=== PATIENT | male | born 1930 ===

== ENCOUNTER 2017-02-18 17:45 | Inpatient (IN) | payer OTHER, MEDICARE ==
[2017-02-18] MEDS ORDERED: METOPROLOL TARTRATE 5 MG/5 ML VIAL IV PUSH SCH (20:00)
[2017-02-18] MEDS ORDERED: METOPROLOL TARTRATE 5 MG/5 ML VIAL IV PUSH PRN (20:13)
[2017-02-18] MEDS ORDERED: PILL SPLITTER OTHER PRN (20:15)
--- NOTE | 2017-02-18 20:21 | HHI.HP ---
History of Present Illness Chief Complaint: juxtarenal AAA History of Present Illness 86 yo male with asymptomatic AAA. The patient said that he was told to come to ED by home health RN because of an AAA. The patient knew about it years ago but says that "it was too small". By outside report, he has no radiographic evidence of leak or signs of rupture. The patient notes no abdominal or back pain and reports that he is in his usual state of health. Of note, there is a noted clinical history of a CVA with mild dementia but he seems very pleasant and oriented. Past/Family/Social History Past Medical History HTN XOL a-fib (on coumadin) DM BPH with chronic Her drainage ?CVA ? dementia Past Surgical History none per patient Social History ex smoker, quit 30 years ago Family History no history of AAA Coded Allergies: No Known Allergies (Unverified , 02/18/17) Review of Systems Respiratory: DENIES: Sputum production, Shortness of breath Cardiovascular: DENIES: Chest pain, Dyspnea on Exertion, PND, Claudication Gastrointestinal: DENIES: Abdominal pain Physical Exam Neuro: alert, oriented to person and situation no focal deficits HEENT: NC/AT; aniecteric sclera Neck: no JVD Heart: reg rate (though atrial dysrhythmia on tele) Lungs: clear B Abdomen: pulsatile upper abdominal mass, nontender Vascular: palpable femoral pulses, no popliteal aneurysms Extremities: warm, perfused, 5/5 strength pending. pending Assessment and Plan Plan 1. 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 Asymptomatic. He appears physiologically to be an open candidate and may be endovascular candidate. Will repeat CTA C/A/P since outside scan not available, if creatinine ok. Based on imaging, will discuss with patient and his family the options for repair: open vs endo. SBP < 140 tonight. NPO tonight. ASA, statin, beta-katja 2. TTE tomorrow for risk stratification 3. ABIs 4. Check INR - if >1.3, will reverse with vit K. Hold coumadin (on for a-fib by records). Evangelist Camacho MD FACS steamfitter apprentice [facility] - Heart and Vascular Surgery at [facility] [phone] Discharge Planning pending repair of aneurysm. Evangelist Camacho MD February 18, 2017 20:21
[2017-02-18 20:52] LABS: AUTOMATED NEUTROPHIL # 8.5 TH/MM3 (1.8-7.7); BASOPHIL # 0.1 TH/MM3 (0-0.2); BASOPHIL % 1.3 % (0.0-2.0); EOSINOPHIL # 0.2 TH/MM3 (0-0.4); EOSINOPHIL % 1.7 % (0.0-4.0); HEMATOCRIT 36.6 % (39.0-51.0); LYMPH % 8.4 % (9.0-44.0); LYMPHOCYTE # 0.9 TH/MM3 (1.0-4.8); MEAN CELL VOLUME 91.4 FL (80.0-100.0); MEAN CORPUSCULAR HEMOGLOBIN 30.6 PG (27.0-34.0); MEAN CORPUSCULAR HGB CONC 33.5 % (32.0-36.0); NEUT % 80.6 % (16.0-70.0); PLATELET COUNT 235 TH/MM3 (150-450); RED CELL DISTRIBUTION WIDTH 14.5 % (11.6-17.2); WHITE BLOOD COUNT 10.6 TH/MM3 (4.0-11.0)
[2017-02-18 20:54] LABS: HEMO FLAGS DIFF FINAL
[2017-02-18] MEDS ORDERED: ATORVASTATIN 40 MG TAB PO SCH (21:00)
[2017-02-18 21:01] LABS: APTT (PATIENT) 42.1 SEC (24.3-30.1); INTERNATIONAL NORMALIZED RATIO 2.1 RATIO; PROTHROMBIN TIME - PATIENT 23.8 SEC (9.8-11.6)
[2017-02-18] MEDS: METOPROLOL TARTRATE 25 MG TAB PO SCH (21:01)
[2017-02-18] MEDS: FAMOTIDINE 20 MG TAB PO SCH (21:01)
[2017-02-18] MEDS: LACTATED RINGER'S 1000 ML INJ 1,000 ML IV SCH (21:02)
[2017-02-18 21:13] LABS: ALKALINE PHOSPHATASE 72 U/L (45-117); ALT (GPT) 14 U/L (12-78); ANION GAP 8 MEQ/L (5-15); AST (GOT) 10 U/L (15-37); BICARBONATE 26.8 MEQ/L (21.0-32.0); BLOOD UREA NITROGEN 13 MG/DL (7-18); CHLORIDE 102 MEQ/L (98-107); GLOMERULAR FILTRATION RATE 55 ML/MIN (>89); POTASSIUM 3.6 MEQ/L (3.5-5.1); SODIUM (NA) 137 MEQ/L (136-145); TOTAL BILIRUBIN ADULT 0.7 MG/DL (0.2-1.0)
[2017-02-18 21:35] VITALS: PULSE 70
[2017-02-18 21:39] LABS: BLOOD, URINE MOD (NEG); COMMENT (UR) CULTURE INDICATED; CULTURE IF INDICATED CULTURE INDICATED; GLUCOSE,URINE NEG (NEG); KETONE, URINE NEG (NEG); NITRITE,URINE NEG (NEG); URINE COLOR YELLOW (YELLW/STRAW)
--- NOTE | 2017-02-18 21:42 | PD.CONS ---
[facility] Service Critical Care Medicine Consult Requested By Vascular Surgery Service Reason for Consult Critical Care Primary Care Physician Shaye Marquez History of Present Illness Pleasant, conversant, cooperative 86 y/o man with mild dementia and recent enlargement of a previously identified AAA, apparently lost to follow-up. The AAA is now about 10 cm transverse diameter by report. He denies any back or abdominal pain. Denies any chest pain or SOB. He is on coumadin for permanent a- fib. BP control is presently acceptable. 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 He has been treated for a UTI in the past. Review of Systems ROS Denies everything. States is used to be quite active but does not walk long distances much anymore. 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 BPH, chronic hidalgo. Permanent a-fib HTN Reported Medications See chart Physical Exam Physical Exam P 67 - 79, BP 105/55, R 12, Sats 96% RA Head: Normal. Neck: Supple, airway widely patent. Lungs: Clear, no wheezes or crackles. Heart: Irreg Irreg, 2/6 systolic murmur LSB. Neck veins are flat. Abdomen: Large pulsatile mass mid, upper abdomen. No guarding. No tenderness. BS active. Extremities: Warm, well perfused. Toes are pink. 14 cm X 5 cm area of chronic brawny induration left medial lower leg. Dry, clean, well healed. Pulses: Radials 3 + grisel, fems 3+ right, 2+ left. Cap refill prompt both feet. Neuro: Alert, cooperative, conversant. Arm strength 5/5 grisel. Legs 5/5 right, 4/ 5 left. Tongue protrusion, shoulder shrug, smile, grimace, EOMs intact. Laboratory Laboratory Tests Test 02/18/17 20:07 White Blood Count 10.6 Red Blood Count 4.00 Hemoglobin 12.2 Hematocrit 36.6 Mean Corpuscular Volume 91.4 Mean Corpuscular Hemoglobin 30.6 Mean Corpuscular Hemoglobin 33.5 Concent Red Cell Distribution Width 14.5 Platelet Count 235 Mean Platelet Volume 7.3 Neutrophils (%) (Auto) 80.6 Lymphocytes (%) (Auto) 8.4 Monocytes (%) (Auto) 8.0 Eosinophils (%) (Auto) 1.7 Basophils (%) (Auto) 1.3 Neutrophils # (Auto) 8.5 Lymphocytes # (Auto) 0.9 Monocytes # (Auto) 0.8 Eosinophils # (Auto) 0.2 Basophils # (Auto) 0.1 CBC Comment DIFF FINAL Differential Comment Prothrombin Time 23.8 Prothromb Time International 2.1 Ratio Activated Partial 42.1 Thromboplast Time Sodium Level 137 Potassium Level 3.6 Chloride Level 102 Carbon Dioxide Level 26.8 Anion Gap 8 Blood Urea Nitrogen 13 Creatinine 1.24 Estimat Glomerular Filtration 55 Rate Random Glucose 186 Calcium Level 8.2 Total Bilirubin 0.7 Aspartate Amino Transf 10 (AST/SGOT) Alanine Aminotransferase 14 (ALT/SGPT) Alkaline Phosphatase 72 Total Protein 6.4 Albumin 2.7 Result Diagram: 02/18/17200602/18/172006 Assessment and Plan Assessment and Plan Assessment: 1. Large juxtarenal AAA. 2. Colonized urine/UTI?, previous ESBL E.coli 3. EMEKA. 4. Permanent A-fib 5. S/P CVA. 6. Systolic murmur Plan: 1. Hydrate gently. 2. Practice IS. 3. ID recommendation for perioperative urine coverage for ESBL E. coli organism and chronic hidalgo. 4. Cardiac ECHO. 5. Beta katja coverage. 6. Hold FATOUMATA-I. 7. Hold oral diabetic agents, start SSI coverage. 8. No chemical DVT prophylaxis. Overall impression: Cooperative elderly gentleman with large AAA which statistically should have ruptured about 3-5 years ago. I suspect following his CVA it became a secondary issue. He breathes comfortably while supine and has good peripheral perfusion. At this point it is a semi-emergency despite the lack of symptoms. He is an acceptable cardiopulmonary risk for open or endovascular repair unless the ECHO reveals something I haven't anticipated. For now we will gingerly hydrate to correct his EMEKA and try to figure out how best to cover his urine for the procedure. Bang Bañuelos MD February 18, 2017 21:42
[2017-02-18] MEDS ORDERED: DEXTROSE 50% IN WATER 50 ML VIAL(D50) IV PRN (21:45)
[2017-02-18] MEDS ORDERED: GLUCAGON 1 MG/ML VIAL OTHER PRN (21:45)
[2017-02-18] MEDS ORDERED: PHYTONADIONE 5 MG TAB PO ONE (22:00)
[2017-02-18 23:00] VITALS: PULSE 63
[2017-02-19 03:00] VITALS: PULSE 70
[2017-02-19] MEDS: INSULIN ASPART SUPPLEMENTAL SCALE SQ SCH ×3 (06:00→12:27)
[2017-02-19 06:13] LABS: INTERNATIONAL NORMALIZED RATIO 1.7 RATIO; PROTHROMBIN TIME - PATIENT 19.1 SEC (9.8-11.6)
[2017-02-19 07:00] VITALS: BP 114/59; PULSE 62; PULSE 67; RESP 18; TEMP 99.2; O2SAT 94
[2017-02-19 07:20] LABS: HEMATOCRIT 34.4 % (39.0-51.0); MEAN CELL VOLUME 90.9 FL (80.0-100.0); MEAN CORPUSCULAR HGB CONC 34.1 % (32.0-36.0); PLATELET COUNT 227 TH/MM3 (150-450); RED BLOOD COUNT 3.78 MIL/MM3 (4.50-5.90); RED CELL DISTRIBUTION WIDTH 14.2 % (11.6-17.2); REVIEW FLAG FINAL; WHITE BLOOD COUNT 10.6 TH/MM3 (4.0-11.0)
[2017-02-19 07:26] LABS: BICARBONATE 25.3 MEQ/L (21.0-32.0); POTASSIUM 3.9 MEQ/L (3.5-5.1)
[2017-02-19] MEDS: METOPROLOL TARTRATE 25 MG TAB PO SCH (08:31)
[2017-02-19] MEDS: FAMOTIDINE 20 MG TAB PO SCH (08:31)
--- NOTE | 2017-02-19 08:48 | PD.VS.PN ---
Subjective Subjective/Hospital Course Pt admitted with large juxtarenal AAA Overnight, no problems. BP controlled; no abdominal discomfort Objective Vitals/I&O Date Time Temp Pulse Resp B/P Pulse Ox O2 Delivery O2 Flow Rate FiO2 02/19/17 07:00 67 02/19/17 03:00 70 02/18/17 23:00 63 02/18/17 21:35 70 02/19/17 02/19/17 02/19/17 06:59 14:59 22:59 Intake Total 630 ml Output Total 1200 ml Balance -570 ml Physical Exam resting comfortably, mildly confused, no focal deficits Abdomen soft, NT; palpable mass - pulsatile but nontender Laboratory Laboratory Tests Test 02/18/17 02/18/17 02/19/17 20:07 20:10 04:57 White Blood Count 10.6 10.6 Red Blood Count 4.00 3.78 Hemoglobin 12.2 11.7 Hematocrit 36.6 34.4 Mean Corpuscular Volume 91.4 90.9 Mean Corpuscular Hemoglobin 30.6 31.0 Mean Corpuscular Hemoglobin 33.5 34.1 Concent Red Cell Distribution Width 14.5 14.2 Platelet Count 235 227 Mean Platelet Volume 7.3 7.9 Neutrophils (%) (Auto) 80.6 Lymphocytes (%) (Auto) 8.4 Monocytes (%) (Auto) 8.0 Eosinophils (%) (Auto) 1.7 Basophils (%) (Auto) 1.3 Neutrophils # (Auto) 8.5 Lymphocytes # (Auto) 0.9 Monocytes # (Auto) 0.8 Eosinophils # (Auto) 0.2 Basophils # (Auto) 0.1 CBC Comment DIFF FINAL Differential Comment Prothrombin Time 23.8 19.1 Prothromb Time International 2.1 1.7 Ratio Activated Partial 42.1 Thromboplast Time Sodium Level 137 139 Potassium Level 3.6 3.9 Chloride Level 102 104 Carbon Dioxide Level 26.8 25.3 Anion Gap 8 10 Blood Urea Nitrogen 13 14 Creatinine 1.24 1.12 Estimat Glomerular Filtration 55 62 Rate Random Glucose 186 131 Calcium Level 8.2 8.2 Total Bilirubin 0.7 Aspartate Amino Transf 10 (AST/SGOT) Alanine Aminotransferase 14 (ALT/SGPT) Alkaline Phosphatase 72 Total Protein 6.4 Albumin 2.7 Blood Type A POSITIVE Antibody Screen NEGATIVE Blood Bank Comment Date/Time Procedure Status Source Growth 02/18/17 00:00 Urine Culture Received Urine Clean Catch Pending Imaging CTA reviewed 10.2cm juxtarenal aortic aneurysm, starts at level of renal arteries. Tortuous so no endovascular solution Assessment and Plan Plan 1. 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 Asymptomatic. I talked with the patient about necessity of repair; his and son ( neither of whom drive but both live locally) are coming in this afternoon and will discuss options: open repair or non-operative Tentatively on for open repair tomorrow (Wed) via RP approach 2. TTE today for risk stratification 3. ABIs today 4. INR goal <1.3 today 5. Will d/w anesthesia about options for epidural 6. Cardiac diet until [place] Evangelist Camacho MD FACS environmental sampling technician [facility] - Heart and Vascular Surgery at [facility] [phone] Discharge Planning pending repair of aneurysm. Evangelist Camacho MD February 19, 2017 08:48
[2017-02-19] MEDS ORDERED: PHYTONADIONE 5 MG TAB PO SCH (09:00)
[2017-02-19] MEDS ORDERED: ASPIRIN 81 MG CHEW TAB PO SCH (09:00)
[2017-02-19] MEDS ORDERED: HEPARIN SODIUM - SQ 10,000 UNITS/ML VIAL SQ SCH (09:00)
[2017-02-19 11:00] VITALS: BP 104/70; PULSE 59; RESP 18; TEMP 98.7; O2SAT 95
[2017-02-19] MEDS: LACTATED RINGER'S 1000 ML INJ 1,000 ML IV SCH (12:25)
[2017-02-19] MEDS ORDERED: MISCELLANEOUS PHARMACY INFORMATION XX PRN ×2 (14:15)
[2017-02-19] MEDS ORDERED: ASP: Other exception documentation: ( ) PRN (14:15)
--- NOTE | 2017-02-19 14:15 | RADRPT ---
EXAM DATE/TIME: 02/18/2017 00:00 [place] COMPARISON: No previous studies available for comparison. INDICATIONS : AAA, claudication TECHNIQUE: Four-cuff ankle and brachial pressures were obtained. Pulse cuff waveform tracings of the ankles were recorded, and ankle-brachial indices were calculated. PRESSURES (mmHg): Brachial (arm): Right iv site Left 104 Ankle: Right 115 Left 114 K[place]AS: Right 1.11 Left 1.10 TBI: Right 0.66 Left 0.85 TECH NOTE: PVR difficult to obtain as patient could not hold feet PORSHA Singh MR#: [id number] 08/08 Exam DT/Desc: February 18, 2017[facility] ANKLE BRACHIAL INDEX PULSED CUFF WAVEFORMS: Demonstrate normal amplitude bilaterally. CONCLUSION: Unremarkable ankle brachial indices. Efrain Barnes MD on February 19, 2017 at 14:13 Board Certified Radiologist. This report was verified electronically.
--- NOTE | 2017-02-19 14:38 | PD.VS.PN ---
Subjective Subjective/Hospital Course Pt admitted with large juxtarenal AAA Remains HD stable and no pain. The , son and a friend were in the room this afternoon as we planned. We discussed the procedure, and I offered an open surgical repair. They all are in agreement that they do not want to proceed with surgery and understand the high risk of rupture without surgery. We also discussed that if the decision is made NOT to repair electively, then we 'd not repair if he presented ruptured. All of their questions were answered and they understand the natural history of untreated large aneurysms. Will discharge to home this afternoon. Objective Vitals/I&O Date Time Temp Pulse Resp B/P Pulse Ox O2 Delivery O2 Flow Rate FiO2 02/19/17 11:00 59 02/19/17 11:00 95 Room Air 02/19/17 11:00 98.7 59 18 104/70 95 02/19/17 07:00 94 Room Air 02/19/17 07:00 99.2 62 18 114/59 94 02/19/17 07:00 67 02/19/17 03:00 70 02/18/17 23:00 63 02/18/17 21:35 70 02/19/17 02/19/17 02/19/17 06:59 14:59 22:59 Intake Total 630 ml Output Total 1200 ml Balance -570 ml Laboratory Laboratory Tests Test 02/18/17 02/18/17 02/19/17 02/19/17 20:07 20:10 04:57 11:23 White Blood Count 10.6 10.6 Red Blood Count 4.00 3.78 Hemoglobin 12.2 11.7 Hematocrit 36.6 34.4 Mean Corpuscular Volume 91.4 90.9 Mean Corpuscular Hemoglobin 30.6 31.0 Mean Corpuscular Hemoglobin 33.5 34.1 Concent Red Cell Distribution Width 14.5 14.2 Platelet Count 235 227 Mean Platelet Volume 7.3 7.9 Neutrophils (%) (Auto) 80.6 Lymphocytes (%) (Auto) 8.4 Monocytes (%) (Auto) 8.0 Eosinophils (%) (Auto) 1.7 Basophils (%) (Auto) 1.3 Neutrophils # (Auto) 8.5 Lymphocytes # (Auto) 0.9 Monocytes # (Auto) 0.8 Eosinophils # (Auto) 0.2 Basophils # (Auto) 0.1 CBC Comment DIFF FINAL Differential Comment Prothrombin Time 23.8 19.1 Prothromb Time International 2.1 1.7 Ratio Activated Partial 42.1 Thromboplast Time Sodium Level 137 139 Potassium Level 3.6 3.9 Chloride Level 102 104 Carbon Dioxide Level 26.8 25.3 Anion Gap 8 10 Blood Urea Nitrogen 13 14 Creatinine 1.24 1.12 Estimat Glomerular Filtration 55 62 Rate Random Glucose 186 131 Calcium Level 8.2 8.2 Total Bilirubin 0.7 Aspartate Amino Transf 10 (AST/SGOT) Alanine Aminotransferase 14 (ALT/SGPT) Alkaline Phosphatase 72 Total Protein 6.4 Albumin 2.7 Blood Type A POSITIVE A POSITIVE Antibody Screen NEGATIVE Blood Bank Comment Date/Time Procedure Status Source Growth 02/18/17 00:00 Urine Culture - Preliminary Resulted Urine Clean Catch RESULTS PENDING Assessment and Plan Plan 1. 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 Asymptomatic. No surgery now or emergently. 2. Can f/u prn Evangelist Camacho MD FACS skidder runner [facility] - Heart and Vascular Surgery at [facility] [address] [phone] Discharge Planning pending repair of aneurysm. Evangelist Camacho MD February 19, 2017 14:38
[2017-02-19] MEDS ORDERED: SIMV20TA PO (14:40)
[2017-02-19] MEDS ORDERED: TAMS5CAP PO (14:40)
[2017-02-19] MEDS ORDERED: ARIC10TA PO (14:40)
[2017-02-19] MEDS ORDERED: WARF-18 PO (14:40)
[2017-02-19] MEDS ORDERED: GLIM2TAB PO (14:40)
[2017-02-19] MEDS ORDERED: LISI10TA3 PO (14:40)
--- NOTE | 2017-02-19 14:42 | PD.VS.DC ---
Discharge Summary Admission Date: February 18, 2017 at 19:13 Discharge Date: February 19, 2017 Admission Diagnosis: (1) [place] abdominal aneurysm Discharge Diagnosis: (1) [place] abdominal aneurysm Status: Acute Brief History from admission 86 yo male with asymptomatic AAA. The patient said that he was told to come to ED by home health RN because of an AAA. The patient knew about it years ago but says that "it was too small". By outside report, he has no radiographic evidence of leak or signs of rupture. The patient notes no abdominal or back pain and reports that he is in his usual state of health. Of note, there is a noted clinical history of a CVA with mild dementia but he seems very pleasant and oriented. Procedure(s): none Significant Findings Laboratory Tests Test 02/18/17 02/18/17 02/19/17 00:00 20:07 04:57 Urine Occult Blood MOD (NEG) Urine Leukocyte Esterase MOD (NEG) Urine RBC 31 /hpf (0-3) Urine WBC 32 /hpf (0-5) Red Blood Count 4.00 MIL/MM3 3.78 MIL/MM3 (4.50-5.90) (4.50-5.90) Hemoglobin 12.2 GM/DL 11.7 GM/DL (13.0-17.0) (13.0-17.0) Hematocrit 36.6 % 34.4 % (39.0-51.0) (39.0-51.0) Neutrophils (%) (Auto) 80.6 % (16.0-70.0) Lymphocytes (%) (Auto) 8.4 % (9.0-44.0) Neutrophils # (Auto) 8.5 TH/MM3 (1.8-7.7) Lymphocytes # (Auto) 0.9 TH/MM3 (1.0-4.8) Prothrombin Time 23.8 SEC 19.1 SEC (9.8-11.6) (9.8-11.6) Activated Partial 42.1 SEC Thromboplast Time (24.3-30.1) Estimat Glomerular Filtration 55 ML/MIN (>89) 62 ML/MIN (>89) Rate Random Glucose 186 MG/DL 131 MG/DL (74-106) (74-106) Calcium Level 8.2 MG/DL 8.2 MG/DL (8.5-10.1) (8.5-10.1) Aspartate Amino Transf 10 U/L (15-37) (AST/SGOT) Albumin 2.7 GM/DL (3.4-5.0) Hospital Course: The patient was evaluated and offered, along with his family, an open surgical repair. He was a poor anatomic candidate for endovascular repair. After discussion, the family declined along with the patient. Will be discharged without surgical repair. Discharge Condition: Stable Discharge Disposition: Discharge Home Discharge Instructions: 1. Resume all pre-admission medications. 2. Call with any questions. Any questions or concerns: Call [facility] Heart and Vascular Surgery at [facility] [phone] Evangelist Camacho MD February 19, 2017 14:42
--- NOTE | 2017-02-19 14:48 | EKG ---
Date Performed: 02/18/2017 Time Performed: 21:19:12 PTAGE: 86 years EKG: Regular supraventricular rhythm Anterolateral T wave changes are nonspecific Borderline ECG NO PREVIOUS TRACING DOCTOR: Lauren Baer Interpretating Date/Time 02/19/2017 14:48:01
[2017-02-19] MEDS ORDERED: ERTAPENEM INJ 1,000 MG in SODIUM CHLORIDE 0.9% INJ 100 ML IV SCH (15:00)
--- NOTE | 2017-02-19 19:01 | ECHLIM ---
Study Study Date:02/19/2017 STUDY CONCLUSIONS SUMMARY - Left ventricle: The cavity size was normal. Wall thickness was normal. Systolic function was normal. The estimated ejection fraction was 70%. Wall motion was normal; there were no regional wall motion abnormalities. - Aortic valve: Calcified annulus. Trileaflet; mildly thickened, mildly calcified leaflets. - Mitral valve: Mild regurgitation. - Left atrium: The atrium was mildly dilated. - Tricuspid valve: Mild regurgitation. - Pulmonary arteries: Systolic pressure was mildly increased. PA peak pressure: 44mm Hg (S). If LV function is below 40, please consider prescribing an ACEI or ARB or document rationale for non-use. PROCEDURE DATA STUDY STATUS: Elective. Procedure: Transthoracic echocardiography. Image quality was good. Scanning was performed from the parasternal, apical, and subcostal acoustic windows. Study completion: The patient tolerated the procedure well. Transthoracic echocardiography. M-mode, complete 2D, complete spectral Doppler, and color Doppler. Height: Height: 69in. Weight: Weight: 179.6lb. Body mass index: BMI: 26.6kg/m^2. Body surface area: BSA: 1.98m^2. Patient status: Inpatient. CARDIAC ANATOMY LEFT VENTRICLE: The cavity size was normal. Wall thickness was normal. Systolic function was normal. The estimated ejection fraction was 70%. Wall motion was normal; there were no regional wall motion abnormalities. AORTIC VALVE: Calcified annulus. Trileaflet; mildly thickened, mildly calcified leaflets. Doppler: Transvalvular velocity was within the normal range. There was no stenosis. No regurgitation. Valve area: 1.94cm^2(VTI). Indexed valve area: 0.98cm^2/m^2 (VTI). Valve area: 2cm^2 (Vmax). Indexed valve area: 1.01cm^2/m^2 (Vmax). Mean gradient: 6mm Hg (S). Peak gradient: 11mm Hg (S). AORTA: Aortic root: The aortic root was normal in size. MITRAL VALVE: Structurally normal valve. Doppler: Transvalvular velocity was within the normal range. There was no evidence for stenosis. Mild regurgitation. Peak gradient: 6mm Hg (D). LEFT ATRIUM: The atrium was mildly dilated. RIGHT VENTRICLE: The cavity size was normal. Wall thickness was normal. PULMONIC VALVE: Doppler: Transvalvular velocity was within the normal range. There was no evidence for stenosis. No regurgitation. TRICUSPID VALVE: Structurally normal valve. Doppler: Transvalvular velocity was within the normal range. Mild regurgitation. PULMONARY ARTERY: The main pulmonary artery was normal-sized. Systolic pressure was mildly increased. RIGHT ATRIUM: The atrium was normal in size. PERICARDIUM: There was no pericardial effusion. SYSTEMIC VEINS: Inferior vena cava: The vessel was normal in size. Patient weight: 179.6lb _Ejection fraction:_ 65-75% _Fractional shortening:_ 32% up to 5Kg 5-11.5Kg 11.6-22.9Kg 23-45Kg 45-57Kg Aortic Root 7-13 <17 13-22 17-27 17-27 LA diam 6-13 <23 24-38 33-47 37-40 RVID 10-17 7-15 7-15 7-18 8-17 LVIDd 12-22 <32 24-38 33-47 37-40 LVPW 2-4 3-6 5-7 6-8 7-8 IVS 2-4 3-6 5-7 6-8 7-8 BASIC MEASUREMENTS ADULT NORMAL Left ventricle LV internal dimension, ED, chordal 47.9 mm 43-52 level, PLAX LV internal dimension, ES, chordal 31.5 mm 23-38 level, PLAX Fractional shortening, chordal level, 34 % >29 PLAX LV posterior wall thickness, ED 8.82 mm IVS/LVPW ratio, ED 1 <1.3 Ventricular septum Septal thickness, ED 8.8 mm Aortic valve Leaflet separation 18 mm 15-26 Aorta Root diameter, ED 37 mm Left atrium Anterior-posterior dimension 44 mm Anterior-posterior dimension index *2.22 cm/m^2 <2.2 BASIC MEASUREMENTS ADULT NORMAL Aortic valve Leaflet separation 18 mm 15-26 DOPPLER MEASUREMENTS ADULT NORMAL Main pulmonary artery Pressure, S *44 mm Hg =30 Aortic valve Peak velocity, S 163 cm/s Mean velocity, S 108 cm/s VTI, S 30.4 cm Mean gradient, S 6 mm Hg Peak gradient, S 11 mm Hg Valve area, VTI 1.94 cm^2 Valve area index, VTI 0.98 cm^2/m^2 Valve area, Vmax 2 cm^2 Valve area index, Vmax 1.01 cm^2/m^2 Mitral valve Peak E-wave velocity 123 cm/s Deceleration time 219 ms 150-230 Peak gradient, D 6 mm Hg Tricuspid valve Regurgitant peak velocity 17.7 cm/s Peak RV-RA gradient, S 0 mm Hg Maximal regurgitant velocity 17.7 cm/s Systemic veins Estimated CVP 10 mm Hg Right ventricle RV pressure, S *47 mm Hg <30 Pulmonic valve Peak velocity, S 81.2 cm/s LEGEND: Mean values are shown as u=mean value. Asterisk (*) hedrick values outside specified normal range. Prepared and signed by Rell Rodriguez [id number]
== END 2017-02-19 15:19 | disposition home or self-care (01) | DRG 300 ==
LOC: HCVR 19:13
PROVIDERS: ADMIT Surgery; ATTEND Surgery
DX: I71.4 Abdominal aortic aneurysm, without rupture (principal); I69.354 Hemiplegia and hemiparesis following cerebral infarction affecting left non-dominant side; N17.9 Acute kidney failure, unspecified; F03.90 Unspecified dementia, unspecified severity, without behavioral disturbance, psychotic disturbance, mood disturbance, and anxiety; R82.71 Bacteriuria; N40.0 Benign prostatic hyperplasia without lower urinary tract symptoms; I48.2 Chronic atrial fibrillation; Z79.01 Long term (current) use of anticoagulants; E11.9 Type 2 diabetes mellitus without complications; I10 Essential (primary) hypertension; R01.1 Cardiac murmur, unspecified; Z87.891 Personal history of nicotine dependence; Z87.440 Personal history of urinary (tract) infections
CPT/HCPCS: 80048; 80053; 81001; 82948; 85025; 85027; 85610; 85730; 86850; 86900; 86901; 87077; 87086; 87186; 93005; 93308; 93922; J1644; J1815; J7120